=== PATIENT | male | born 1995 | race Caucasian/White ===

== ENCOUNTER 2017-04-24 18:40 | Inpatient (IN) | payer OTHER, MEDICAID ==
[~2017-04-24] VITALS: Ht 180.3 cm; Wt 98.0 kg
[2017-04-24 20:00] VITALS: BP 155/91
[2017-04-24] MEDS: LORazepam 1 MG tablet PO PRN (20:06)
[2017-04-24] MEDS: OLANZapine 5mg rapidly disint. tablet PO PRN (20:06)
[2017-04-24] MEDS: traZODone 50mg tablet PO SCH (21:18)
[2017-04-25] MEDS ORDERED: NO HOME MEDS PO (01:33)
[2017-04-25 07:39] VITALS: BP 134/80
[2017-04-25] MEDS ORDERED: folic acid 1mg tablet PO ONE (08:10)
[2017-04-25] MEDS ORDERED: thiamine 100mg/ml 2ml inj. IM ONE (08:10)
[2017-04-25] MEDS ORDERED: thiamine 100mg tablet PO ONE (08:43)
[2017-04-25] MEDS: OLANZapine 5mg rapidly disint. tablet PO PRN (09:15)
[2017-04-25] MEDS: divalproex sod 250mg ER (24-hour) tablet PO SCH ×2 (09:16→20:13)
[2017-04-25] MEDS: PALIPERIDONE 3 MG TAB.ER.24 PO SCH (09:16)
[2017-04-25] MEDS: LORazepam 1 MG tablet PO PRN (09:16)
[2017-04-25 19:25] VITALS: BP 138/68
[2017-04-25] MEDS: thiamine 100mg tablet PO SCH (20:14)
[2017-04-25] MEDS: traZODone 50mg tablet PO SCH (20:14)
[2017-04-26] MEDS: LORazepam 1 MG tablet PO PRN (03:00)
[2017-04-26 03:23] VITALS: BP 125/67
[2017-04-26] MEDS: thiamine 100mg tablet PO SCH ×2 (07:47→20:22)
[2017-04-26] MEDS: PALIPERIDONE 3 MG TAB.ER.24 PO SCH (07:48)
[2017-04-26] MEDS: divalproex sod 250mg ER (24-hour) tablet PO SCH ×2 (08:18→20:22)
[2017-04-26] MEDS: folic acid 1mg tablet PO SCH (08:18)
[2017-04-26 08:44] LABS: BASOPHILS % (AUTO) 0.6 % (0-1); EOSINOPHILS # (AUTO) 0.1 X10'3 (0-0.9); EOSINOPHILS % (AUTO) 3.1 % (0-6); HEMATOCRIT 40.7 % (42.0-52.0); HEMOGLOBIN 14.4 g/dl (14.0-17.9); LYMPHOCYTES # (AUTO) 1.5 X10'3 (1.1-4.8); MEAN CORPUSCULAR HGB CONC 35.5 % (33.0-36.5); MEAN PLATELET VOLUME 9.4 FL (7.4-10.4); MONOCYTES # (AUTO) 0.4 X10'3 (0-0.9); MONOCYTES % (AUTO) 9.8 % (2-12); NEUTROPHILS # (AUTO) 2.5 X10'3 (1.8-7.7); NEUTROPHILS % (AUTO) 54.5 % (42-75); PLATELET COUNT 237 X10'3 (140-440); RED BLOOD COUNT 4.37 X10'6 (4.70-6.10); RED CELL DISTRIBUTION WIDTH 12.9 % (11.5-14.5); WHITE BLOOD COUNT 4.6 X10'3 (4.5-11.0)
[2017-04-26 09:06] LABS: ALANINE AMINOTRANSFERASE 37 U/L (12-78); ALBUMIN 3.6 G/DL (3.4-5.0); ALBUMIN/GLOBULIN RATIO 1.1 (1.1-1.5); ALKALINE PHOSPHATASE 48 IU/L (46-116); ANION GAP 12 (8-16); ASPARTATE AMINO TRANSFERASE 22 U/L (10-37); BILIRUBIN,TOTAL 0.4 MG/DL (0.1-1.0); BLOOD UREA NITROGEN 9 MG/DL (7-18); BUN/CREATININE RATIO 10.3 (5.4-32.0); CHLORIDE 102 MMOL/L (99-107); CREATININE 0.87 MG/DL (0.60-1.10); GLUCOSE 120 MG/DL (70-104); SODIUM 140 MMOL/L (135-145); TOTAL CARBON DIOXIDE 26.5 MMOL/L (24-32); eGFR > 90 ML/MIN
[2017-04-26] MEDS ORDERED: paliperidone palmitate inj 234 MG/1.5 ML SYRINGE IM ONE (11:55)
[2017-04-26 20:00] VITALS: BP 156/94
[2017-04-26] MEDS: traZODone 50mg tablet PO SCH (20:22)
[2017-04-27] MEDS: LORazepam 1 MG tablet PO PRN (01:49)
[2017-04-27] MEDS: diphenhydrAMINE 25mg capsule PO PRN ×3 (03:22→18:58)
[2017-04-27] MEDS: OLANZapine 5mg rapidly disint. tablet PO PRN (07:01)
[2017-04-27] MEDS: PALIPERIDONE 3 MG TAB.ER.24 PO SCH (07:01)
[2017-04-27] MEDS: thiamine 100mg tablet PO SCH ×2 (07:01→21:06)
[2017-04-27] MEDS: folic acid 1mg tablet PO SCH (07:01)
[2017-04-27] MEDS: divalproex sod 250mg ER (24-hour) tablet PO SCH (07:01)
[2017-04-27 08:00] VITALS: BP 127/79
[2017-04-27 08:42] LABS: CHOLESTEROL 123 MG/DL (0-200); HDL CHOLESTEROL 41 MG/DL (35-60); LDL CHOLESTEROL 64 MG/DL (50-100); TRIGLYCERIDES 75 MG/DL (20-135)
[2017-04-27 08:45] LABS: HEMOGLOBIN A1C 5.4 % (4.5-6.2)
[2017-04-27 19:12] VITALS: BP 150/86
[2017-04-27] MEDS: traZODone 50mg tablet PO SCH (21:05)
[2017-04-28 08:00] VITALS: BP 124/77
[2017-04-28] MEDS: PALIPERIDONE 3 MG TAB.ER.24 PO SCH (08:13)
[2017-04-28] MEDS: folic acid 1mg tablet PO SCH (08:13)
[2017-04-28] MEDS: thiamine 100mg tablet PO SCH ×2 (08:13→20:06)
[2017-04-28] MEDS: diphenhydrAMINE 25mg capsule PO PRN ×2 (12:26→20:06)
[2017-04-28 19:01] VITALS: BP 161/94
[2017-04-28] MEDS: traZODone 50mg tablet PO SCH (20:06)
[2017-04-28 21:00] VITALS: BP 120/80
[2017-04-29] MEDS: thiamine 100mg tablet PO SCH ×2 (08:00→20:06)
[2017-04-29 08:09] VITALS: BP 148/79
[2017-04-29] MEDS: PALIPERIDONE 3 MG TAB.ER.24 PO SCH (08:26)
[2017-04-29] MEDS: folic acid 1mg tablet PO SCH (08:26)
[2017-04-29] MEDS: diphenhydrAMINE 25mg capsule PO PRN (12:08)
[2017-04-29 19:40] VITALS: BP 138/85
[2017-04-29] MEDS: traZODone 50mg tablet PO SCH (20:06)
[2017-04-30 08:00] VITALS: BP 122/75
[2017-04-30] MEDS: thiamine 100mg tablet PO SCH ×2 (08:00→20:12)
[2017-04-30] MEDS: nicotine prolacrilex 2mg gum BC PRN ×3 (08:22→20:12)
[2017-04-30] MEDS: folic acid 1mg tablet PO SCH (08:23)
[2017-04-30] MEDS: naltrexone 50mg tablet PO SCH (08:23)
[2017-04-30] MEDS: PALIPERIDONE 3 MG TAB.ER.24 PO SCH (08:23)
[2017-04-30] MEDS: OLANZapine 5mg rapidly disint. tablet PO PRN ×2 (10:29→20:12)
[2017-04-30] MEDS: LORazepam 1 MG tablet PO PRN ×2 (10:29→20:12)
[2017-04-30 19:00] VITALS: BP 132/85
[2017-04-30] MEDS: traZODone 50mg tablet PO SCH (20:12)
[2017-05-01 08:36] VITALS: BP 113/86
[2017-05-01] MEDS: nicotine prolacrilex 2mg gum BC PRN (08:41)
[2017-05-01] MEDS: naltrexone 50mg tablet PO SCH (08:41)
[2017-05-01] MEDS: thiamine 100mg tablet PO SCH ×2 (08:41→20:03)
[2017-05-01] MEDS: PALIPERIDONE 3 MG TAB.ER.24 PO SCH (08:41)
[2017-05-01] MEDS: folic acid 1mg tablet PO SCH (08:41)
[2017-05-01 18:56] VITALS: BP 136/82
[2017-05-01] MEDS: traZODone 50mg tablet PO SCH (20:03)
[2017-05-02 08:00] VITALS: BP 128/67
[2017-05-02] MEDS: naltrexone 50mg tablet PO SCH (08:23)
[2017-05-02] MEDS: thiamine 100mg tablet PO SCH ×2 (08:23→20:00)
[2017-05-02] MEDS: PALIPERIDONE 3 MG TAB.ER.24 PO SCH (08:23)
[2017-05-02] MEDS: folic acid 1mg tablet PO SCH (08:23)
[2017-05-02] MEDS: nicotine prolacrilex 2mg gum BC PRN ×3 (10:55→19:32)
[2017-05-02 19:25] VITALS: BP 138/80
[2017-05-02] MEDS: traZODone 50mg tablet PO SCH (21:13)
[2017-05-03] MEDS: PALIPERIDONE 3 MG TAB.ER.24 PO SCH (07:57)
[2017-05-03] MEDS: folic acid 1mg tablet PO SCH (07:57)
[2017-05-03] MEDS: naltrexone 50mg tablet PO SCH (07:57)
[2017-05-03] MEDS: thiamine 100mg tablet PO SCH (07:57)
[2017-05-03 08:00] VITALS: BP 130/70
[2017-05-03] MEDS ORDERED: paliperidone palmitate 156 mg/ml inj.**IM only IM ONE (09:45)
[2017-05-03] MEDS ORDERED: FOLI1TAB16 PO (10:25)
[2017-05-03] MEDS ORDERED: NALT50TA PO (10:25)
[2017-05-03] MEDS ORDERED: TRAZ-143 PO (10:25)
[2017-05-03] MEDS ORDERED: THI100T PO (10:25)
[2017-05-03] MEDS ORDERED: NICO2GUM29 BC (10:25)
== END 2017-05-03 12:00 | DRG 885 ==
LOC: ADULT MH 18:40
PROVIDERS: ADMIT Psychiatry & Neurology Psychiatry; ATTEND Psychiatry & Neurology Psychiatry
DX: F31.2 Bipolar disorder, current episode manic severe with psychotic features (principal); Z91.14 Patient's other noncompliance with medication regimen; F10.20 Alcohol dependence, uncomplicated; R21 Rash and other nonspecific skin eruption; F12.20 Cannabis dependence, uncomplicated; F17.210 Nicotine dependence, cigarettes, uncomplicated; R41.83 Borderline intellectual functioning; F60.9 Personality disorder, unspecified
CPT/HCPCS: 36415; 80053; 80061; 83036; 84443; 85025; 87070; 99285; J3411; Q0163